=== PATIENT | female | born 1990 | race Two or more races ===

== ENCOUNTER 2021-03-23 09:57 | Outpatient (CLI) | payer OTHER | END 2021-03-23 10:10 | disposition home or self-care (01) | LOC: SONOGRAMA 09:57 | PROVIDERS: ATTEND Pathology Anatomic Pathology & Clinical Pathology | DX: E04.1 Nontoxic single thyroid nodule (principal) ==

== ENCOUNTER 2021-11-05 09:36 | Outpatient (CLI) | payer OTHER | END 2021-11-05 09:53 | disposition home or self-care (01) | LOC: SONOGRAMA 09:36 | PROVIDERS: ATTEND Pathology Anatomic Pathology | DX: E04.2 Nontoxic multinodular goiter (principal) ==